=== PATIENT | male | born 1975 | race African-American/Black ===

== ENCOUNTER 2019-03-15 21:36 | Emergency (ER) | payer MEDICAID ==
[~2019-03-15] VITALS: Ht 182.9 cm; Wt 68.2 kg
[2019-03-15] MEDS ORDERED: [UNRECOGNIZED DRUG - REMARK] PO (21:49)
[2019-03-15] MEDS ORDERED: METHOCARBAMOL 750 MG TABLET PO ONE (23:00)
[2019-03-15] MEDS ORDERED: HYDROmorphone 2 MG/ML SYRINGE IM ONE (23:00)
[2019-03-15] MEDS ORDERED: IBUPROFEN 600 MG TABLET PO ONE (23:00)
[2019-03-15] MEDS ORDERED: ONDANSETRON HCL 4 MG/2 ML VIAL IM ONE (23:00)
[2019-03-15 23:49] VITALS: BP 124/72
== END 2019-03-15 23:51 | disposition home or self-care (01) ==
LOC: EMS 21:37
DX: S76.012A Strain of muscle, fascia and tendon of left hip, initial encounter (principal); M87.9 Osteonecrosis, unspecified; L30.9 Dermatitis, unspecified; F17.210 Nicotine dependence, cigarettes, uncomplicated; X58.XXXA Exposure to other specified factors, initial encounter; Y93.01 Activity, walking, marching and hiking; Y92.89 Other specified places as the place of occurrence of the external cause; Y99.0 Civilian activity done for income or pay
CPT/HCPCS: 73503; 96372; 99283; J1170; J2405

== ENCOUNTER 2019-05-28 11:41 | Emergency (ER) | payer MEDICAID ==
[~2019-05-28] VITALS: Ht 185.4 cm; Wt 70.5 kg
[~2019-05-28 11:41] MED LIST: [UNRECOGNIZED DRUG - REMARK] PO
[2019-05-28] MEDS ORDERED: IBUPROFEN 800 MG TABLET PO ONE (13:30)
[2019-05-28] MEDS ORDERED: PredniSONE 20 MG TABLET PO ONE (13:30)
[2019-05-28] MEDS ORDERED: AQUAPHOR OINTMENT 50 GM TUBE TP ONE (13:30)
[2019-05-28] MEDS ORDERED: KETOROLAC TROMETHAMINE 60 MG/2 ML VIAL IM ONE (13:30)
[2019-05-28 16:39] VITALS: BP 111/64
== END 2019-05-28 16:51 | disposition home or self-care (01) ==
LOC: EMS 11:42
DX: L30.9 Dermatitis, unspecified (principal); G89.29 Other chronic pain; M25.552 Pain in left hip; F17.210 Nicotine dependence, cigarettes, uncomplicated
CPT/HCPCS: 96372; 99283; 99406; J1885; J7512

== ENCOUNTER 2022-02-07 22:58 | Emergency (ER) | payer MEDICAID, OTHER ==
[~2022-02-07] VITALS: Ht 182.9 cm; Wt 70.5 kg
[2022-02-07] MEDS ORDERED: HYDROCODONE/ACETAMINOPHEN 5-325 MG TABLET PO ONE (23:45)
[2022-02-07] MEDS ORDERED: KETOROLAC TROMETHAMINE 60 MG/2 ML VIAL IM ONE (23:45)
[2022-02-07] MEDS ORDERED: BACLOFEN 10 MG TABLET PO ONE (23:45)
[2022-02-08] MEDS ORDERED: HYDR-4723 PO (00:53)
[2022-02-08] MEDS ORDERED: IBUP-1554 PO (00:53)
[2022-02-08] MEDS ORDERED: BACL10TA PO (00:53)
[2022-02-08 00:58] VITALS: BP 145/83
== END 2022-02-08 01:47 | disposition home or self-care (01) ==
LOC: EMS 22:59
DX: M25.552 Pain in left hip (principal); G89.29 Other chronic pain; F10.20 Alcohol dependence, uncomplicated; F17.210 Nicotine dependence, cigarettes, uncomplicated
CPT/HCPCS: 73503; 96372; 99283; J1885

== ENCOUNTER 2023-04-01 21:50 | Emergency (ER) | payer OTHER ==
[~2023-04-01] VITALS: Ht 182.9 cm; Wt 70.5 kg
[~2023-04-01 21:50] MED LIST changes: +BACL10TA PO; +HYDR-4723 PO; +IBUP-1554 PO; -[UNRECOGNIZED DRUG - REMARK] PO
[2023-04-01 21:57] VITALS: TEMP 98.6
[2023-04-01] MEDS ORDERED: IBUPROFEN 600 MG TABLET PO ONE (23:15)
[2023-04-02 01:00] VITALS: BP 119/67; PULSE 66; RESP 14
[2023-04-02] MEDS ORDERED: IBUP-2280 PO (01:37)
== END 2023-04-02 02:37 | disposition home or self-care (01) ==
LOC: EMS 21:50
DX: G89.29 Other chronic pain (principal); M25.552 Pain in left hip; M25.562 Pain in left knee; F17.210 Nicotine dependence, cigarettes, uncomplicated
CPT/HCPCS: 73503; 99284

== ENCOUNTER 2023-11-14 21:43 | Emergency (ER) | payer OTHER ==
[~2023-11-14] VITALS: Ht 182.9 cm; Wt 70.5 kg
[~2023-11-14 21:43] MED LIST changes: -BACL10TA PO; -HYDR-4723 PO; -IBUP-1554 PO; +IBUP-2280 PO
[2023-11-14 21:49] VITALS: BP 137/85; TEMP 98.5
[2023-11-14] MEDS: CEPHALEXIN MONOHYDRATE 500 MG CAPSULE PO ONE (23:03)
[2023-11-14] MEDS: DEXAMETHASONE SOD PHOS 4 MG/ML 5 ML VIAL IM ONE (23:03)
[2023-11-14] MEDS ORDERED: METH4TAB3 PO (23:07)
[2023-11-14] MEDS ORDERED: TRI2515O TP (23:07)
[2023-11-14] MEDS ORDERED: CETI-450 PO (23:07)
[2023-11-14] MEDS ORDERED: CEPH-558 PO (23:07)
[2023-11-14 23:19] VITALS: PULSE 114; RESP 16
== END 2023-11-14 23:26 | disposition home or self-care (01) ==
LOC: EMS 21:43
DX: L30.9 Dermatitis, unspecified (principal); F17.210 Nicotine dependence, cigarettes, uncomplicated
CPT/HCPCS: 99283; 96372; J1100

== ENCOUNTER 2025-01-29 20:34 | Emergency (ER) | payer OTHER ==
[~2025-01-29] VITALS: Ht 182.9 cm; Wt 65.9 kg
[~2025-01-29 20:34] MED LIST changes: +CEPH-558 PO; +CETI-450 PO; +METH4TAB3 PO; +TRI2515O TP
[2025-01-29 20:47] VITALS: BP 123/75; PULSE 110; RESP 18; TEMP 98.2; O2SAT 100
[2025-01-29] MEDS ORDERED: PRED-554 PO (22:45)
[2025-01-29] MEDS: PredniSONE 20 MG TABLET PO ONE (22:49)
== END 2025-01-29 23:02 | disposition home or self-care (01) ==
LOC: EMS 20:34
DX: L30.9 Dermatitis, unspecified (principal); F17.210 Nicotine dependence, cigarettes, uncomplicated; Z79.1 Long term (current) use of non-steroidal anti-inflammatories (NSAID); Z79.899 Other long term (current) drug therapy
CPT/HCPCS: 99283; J7512